=== PATIENT | male | born 1985 | race Caucasian/White ===

== ENCOUNTER 2017-06-02 16:28 | Observation (INO) ==
[2017-06-02] MEDS ORDERED: 0.9 % Sodium Chloride 1,000 ML IVC ONE (17:26)
[2017-06-02] MEDS ORDERED: Ondansetron 4 MG/2 ML VIAL IVP ONE ×2 (17:26→19:48)
[2017-06-02] MEDS ORDERED: Ketorolac 15 MG/ML VIAL IVP ONE (17:26)
[2017-06-02] MEDS ORDERED: *HR* HYDROmorphone (PF) 1 MG/ML SYRINGE IVP ONE (17:26)
[2017-06-02 17:51] LABS: Basophils % 0.1 %; Eosinophils # 0.1 K/mcL (0.0-0.6); Eosinophils % 0.3 %; Hematocrit 47.1 % (37.5-50.1); Hemoglobin 15.9 g/dL (12.9-16.9); Immature Granulocytes % 0.5 % (0-4); Lymphocytes # 0.7 K/mcL (0.6-4.6); Lymphocytes % 4.6 %; Mean Corpuscular HGB Conc 33.8 g/dL (31.6-35.5); Mean Corpuscular Hemoglobin 28.9 pg (28.0-33.3); Mean Corpuscular Volume 85.6 fL (83.0-100.0); Mean Platelet Volume 10.2 fL (9.4-12.4); Monocytes # 0.8 K/mcL (0.0-1.3); Monocytes % 5.5 %; Platelet Count 287 K/mcL (140-400); Red Cell Distribution Width 12.9 % (11.5-14.5)
[2017-06-02 17:57] LABS: BUN/Creatinine Ratio 11 (6-26); Blood Urea Nitrogen 15 mg/dL (6-20); Calcium 10.1 mg/dL (8.6-10.3); Carbon Dioxide 25 mEq/L (23-29); Chloride 105 mEq/L (98-107); Glucose 155 mg/dL (70-105); Osmolality,Calculated 294 (280-300); Potassium 3.9 mEq/L (3.5-5.1); Sodium 140 mEq/L (136-145); eGFR For African Americans > 60 (> 60); eGFR For Non-African Americans 58 (> 60)
--- NOTE | 2017-06-02 18:03 | Emergency Department Note ---
Disposition Clinical Impression: Elevated serum creatinine, Obstructed, uropathy Urolithiasis Qualifiers: Urinary calculus location: other lower urinary tract location Qualified Code(s) : N21.8 - Other lower urinary tract calculus Disposition: Admitted As Inpatient Condition: Fair Referrals: Bharathi Feliciano MD [Primary Care Provider] - Forms: ED Satisfaction Letter, Work/School Release Abdominal Pain HPI - General Chief Complaint: ED Abdominal Pain Stated Complaint: "kidney stones" Time Seen by Provider: 06/02/17 17:25 Source: patient Mode of arrival: ambulatory Limitations: no limitations Nursing Notes Reviewed: Yes Vital Signs Reviewed: Yes - History of Present Illness HPI Narrative: 31-year-old male with history of recurrent kidney stones presents for evaluation of worsening pain. Patient was diagnosed with a kidney stone approximately a week ago. Patient states that he was seeing nephrology to help with his recurrent kidney stones and had an outpatient ultrasound of the kidneys performed earlier today. Patient notes he drank an excessive amount of water and since then has noted progression of pain to the left lower quadrant. Patient also notes decreased urination. Patient denies any fevers does note some nausea but no symptoms of emesis. Patient denies any change in his bowels. Patient states that he has had recurrent kidney stones all of which required intervention by urology. Pain Scale: 8 - Related Data Home Medications Medication Instructions Recorded Confirmed hydroCHLOROthiazide 25 mg PO DAILY 03/17/16 06/02/17 [Hydrochlorothiazide] Potassium Citrate [Urocit-K] 10 meq PO BID 06/02/17 06/02/17 Previous Rx's Medication Instructions Recorded Tamsulosin [Flomax] 0.4 mg PO DAILY #5 cap.er.24h 05/25/17 Allergies Allergy/AdvReac Type Severity Reaction Status Date / Time levofloxacin [From Levaquin] Allergy Hives Verified 06/02/17 16:40 All systems ED: reviewed and negative except as stated. Constitutional: Reports: as per HPI. Denies: fever Eyes: Reports: as per HPI ENT ED: Reports: as per HPI Cardiovascular: Reports: as per HPI. Denies: chest pain Respiratory: Reports: as per HPI. Denies: cough, dyspnea Gastrointestinal: Reports: as per HPI, abdominal pain, nausea. Denies: vomiting Genitourinary: Reports: as per HPI Musculoskeletal: Reports: as per HPI Integumentary: Reports: as per HPI Neurological: Reports: as per HPI Psychiatric: Reports: as per HPI Endocrine: Reports: as per HPI Hematological/Lymphatic: Reports: as per HPI Allergic/Immunologic: Reports: as per HPI Abdominal Pain PMH - Past Medical History Medical history: Reports: hypertension, kidney stones Male Surgical History: Reports: other Psychiatric history: Reports: anxiety, depression - Social History Smoking status: Never smoker Alcohol use: Reports: none Drug use: Reports: none Physical Exam - General Limitations: no limitations General appearance: alert, in no apparent distress, other (Appears uncomfortable ) - Head Head exam: atraumatic, normocephalic, normal inspection - Eye Eye exam: Present: normal appearance, PERRL, EOMI. Absent: scleral icterus - ENT ENT exam: normal exam, normal oropharynx, mucous membranes moist - Neck Neck exam: Present: normal inspection, trachea midline - Chest Chest inspection: Present: normal inspection, symmetric chest wall rise - Respiratory Respiratory exam: Present: normal lung sounds bilaterally. Absent: respiratory distress - Cardiovascular Cardiovascular exam: Present: regular rate, normal rhythm - Abdominal Exam Abdominal exam: Present: soft, tenderness (left Lower abdomen). Absent: Non- Tender - Extremities Exam Extremities exam: Present: normal inspection. Absent: pedal edema - Back Exam Back exam: Present: normal inspection, CVA tenderness (L). Absent: CVA tenderness (R) - Neurological Exam Neurological exam: Present: alert, oriented X3, CN II-XII intact - Skin Skin exam: Present: warm, dry, intact, normal color Course Course Narrative: Patient seen and examined. Patient appears uncomfortable. States that he has not been taking any pain medication at home. - Reevaluation(s) Reevaluation #1: Patient seen and examined. Patient states relief of pain with pain medication. Awaiting urinalysis. Time: 18:51 Vital Signs Temperature 97.4 F L 06/02/17 16:37 Pulse Rate 81 06/02/17 16:37 Respiratory Rate 20 06/02/17 16:37 Blood Pressure 130/90 06/02/17 16:37 O2 Sat by Pulse Oximetry 98 06/02/17 16:37 Temperature 97.4 F L 06/02/17 16:37 Pulse Rate 81 06/02/17 16:37 Respiratory Rate 20 06/02/17 16:37 Blood Pressure 130/90 06/02/17 16:37 O2 Sat by Pulse Oximetry 98 06/02/17 16:37 Oxygen Delivery Oxygen Delivery Room Air Abdominal Pain - MDM Narrative Medical decision making narrative: 31-year-old male percents for evaluation of left flank pain left lower quadrant pain. Does have a history of renal stones. Patient had an ultrasound of the kidneys and bladder performed earlier today. Concerns for obstructing uropathy. Patient had basic lab work including chemistries. Patient will be signed out by oncoming provider pending urinalysis. Patient will need to be evaluated by urology. - Lab Data Lab results reviewed: Yes I reviewed the patient's lab results. Result diagrams: 06/02/17 17:37 06/02/17 17:37 Lab Results 06/02/17 06/02/17 06/02/17 Range/Units 17:37 17:37 18:34 WBC 14.7 H (4.3-11.1) K/mcL RBC 5.50 (4.19-5.50) M/mcL Hgb 15.9 (12.9-16.9) g/dL Hct 47.1 (37.5-50.1) % MCV 85.6 (83.0-100.0) fL MCH 28.9 (28.0-33.3) pg MCHC 33.8 (31.6-35.5) g/dL RDW 12.9 (11.5-14.5) % Plt Count 287 (140-400) K/mcL MPV 10.2 (9.4-12.4) fL Immature Gran % 0.5 (0-4) % Seg Neutrophils % 89.0 % Lymphocytes % 4.6 % Monocytes % 5.5 % Eosinophils % 0.3 % Basophils % 0.1 % Neutrophils # 13.0 H (1.6-8.9) K/mcL Lymphocytes # 0.7 (0.6-4.6) K/mcL Monocytes # 0.8 (0.0-1.3) K/mcL Eosinophils # 0.1 (0.0-0.6) K/mcL Basophils # 0.0 (0.0-0.2) K/mcL Sodium 140 (136-145) mEq/L Potassium 3.9 (3.5-5.1) mEq/L Chloride 105 (98-107) mEq/L Carbon Dioxide 25 (23-29) mEq/L BUN 15 (6-20) mg/dL Creatinine 1.40 H (0.70-1.30) mg/dL Est GFR ( Amer) > 60 (> 60) Est GFR (Non-Af Amer) 58 L (> 60) BUN/Creatinine Ratio 11 (6-26) Glucose 155 H (70-105) mg/dL Calculated Osmolality 294 (280-300) Calcium 10.1 (8.6-10.3) mg/dL Urine Color Yellow (Yellow) Urine Clarity Clear (Clear) Urine pH 6.0 (5.0-8.0) pH Units Ur Specific [place] 1.022 (1.010-1.025) Urine Protein Negative (Neg-Trace) mg/dL Urine Glucose (UA) Normal (Normal) mg/dL Urine Ketones Negative (Negative) mg/dL Urine Blood Large H (Negative) Urine Nitrite Negative (Negative) Urine Bilirubin Negative (Negative) Urine Urobilinogen Normal (Normal) mg/dL Ur Leukocyte Esterase Negative (Negative) Urine Microscopic RBC 3-5 H (0-3) per hpf Urine Microscopic WBC 0-3 (0-3) per hpf Ur Squamous Epith Cells None Seen (None-Few) per lpf Urine Bacteria None Seen (None-Few) per hpf Hyaline Casts None Seen (None-Few) per lpf - Radiology Data Radiology results reviewed: Yes I reviewed the patient's radiology results. Retroperitoneal ultrasound IMPRESSION: Bilateral nephrolithiasis. While the location of the renal calculi visualized on this study are not favored to be obstructive. There is mild left renal hydronephrosis and trace right renal pelviectasis. While nonspecific, no left ureteral jet is appreciated in the bladder. This is suggestive of persistent left ureteral obstructive uropathy and questionable right renal obstructive uropathy. Please note the ureters and ureteral calculi are poorly evaluated by sonography. Jesus - Jesus Situation: Demographics Background: Presenting Complaint Assessment: Vital Signs, Course and respsone to treatment, Patient/Family Expectation Recommendation: Barrier(s) to disposition, Recommendation based on pending studies, treatments, or consults Jesus Report Given to: Dr. Easton Lee Repor Time: 18:52 Attestation Statement - Attestation Attestation: I examined this patient and my medical decision-making was reviewed with the Resident Physician. I agree with the documented findings, disposition and treatment plan as described except to the extent set forth below. Patient to ED with left flank pain. Patient was seen a week ago and diagnosed with a kidney stone. He followed up with nephrology who ordered an ultrasound because he was having pain. He had no ureteral jet. On examination his left CVA tenderness present comfortable. Plan. Patient is not tolerating pain on home dose of Percocet. Still has obstruction. He has had procedures with urology in the past. Paging Dr. Brewer.
[2017-06-02 18:50] LABS: Bilirubin,Urine Negative (Negative); Blood,Urine Large (Negative); Clarity,Urine Clear (Clear); Color,Urine Yellow (Yellow); Glucose,Urine (UA) Normal (Normal); Ketones,Urine Negative (Negative); Leukocyte Esterase,Urine Negative (Negative); Nitrite,Urine Negative (Negative); Protein,Urine Negative (Neg-Trace); Specific Gravity,Urine 1.022 (1.010-1.025); Urobilinogen,Urine Normal (Normal)
[2017-06-02 18:53] LABS: Bacteria,Urine None Seen per hpf (None-Few); Hyaline Casts,Urine None Seen per lpf (None-Few); Squamous Epithelial Cell,Urine None Seen per lpf (None-Few); WBC,Urine 0-3 per hpf (0-3)
--- NOTE | 2017-06-02 19:16 | Emergency Department Note ---
Disposition Clinical Impression: Elevated serum creatinine, Obstructed, uropathy Urolithiasis Qualifiers: Urinary calculus location: other lower urinary tract location Qualified Code(s) : N21.8 - Other lower urinary tract calculus Disposition: Admitted As Inpatient Condition: Fair Referrals: Bharathi Feliciano MD [Primary Care Provider] - Forms: ED Satisfaction Letter, Work/School Release Time of Disposition: 19:14 General Adult HPI - General Chief complaint: ED Abdominal Pain Stated complaint: "kidney stones" Time Seen by Provider: 06/02/17 17:25 Source: patient Mode of arrival: ambulatory Limitations: no limitations - History of Present Illness HPI Narrative: Is a continuation of prior documentation. Pain Scale: 8 - Related Data Home Medications Medication Instructions Recorded Confirmed hydroCHLOROthiazide 25 mg PO DAILY 03/17/16 06/02/17 [Hydrochlorothiazide] Potassium Citrate [Urocit-K] 10 meq PO BID 06/02/17 06/02/17 Previous Rx's Medication Instructions Recorded Tamsulosin [Flomax] 0.4 mg PO DAILY #5 cap.er.24h 05/25/17 Allergies Allergy/AdvReac Type Severity Reaction Status Date / Time levofloxacin [From Levaquin] Allergy Hives Verified 06/02/17 16:40 Constitutional: Reports: as per HPI. Denies: fever Eyes: Reports: as per HPI ENT ED: Reports: as per HPI Cardiovascular: Reports: as per HPI. Denies: chest pain Respiratory: Reports: as per HPI. Denies: cough, dyspnea Gastrointestinal: Reports: as per HPI, abdominal pain, nausea. Denies: vomiting Genitourinary: Reports: as per HPI Musculoskeletal: Reports: as per HPI Integumentary: Reports: as per HPI Neurological: Reports: as per HPI Psychiatric: Reports: as per HPI Endocrine: Reports: as per HPI Hematological/Lymphatic: Reports: as per HPI Allergic/Immunologic: Reports: as per HPI Past Medical History - Past Medical History Medical history: Reports: hypertension, kidney stones Surgical history: Reports: ureteral stent Psychiatric history: Reports: anxiety, depression - Social History Smoking Status: Never smoker Smokeless Tobacco Status: No Alcohol use: Reports: none Drug use: Reports: none Physical Exam - General Limitations: no limitations General appearance: alert, in no apparent distress, other (Appears uncomfortable ) Course - Reevaluation(s) Reevaluation #1: Patient seen and examined. Patient confirms that he has had more than 10 stones all of which have required surgical intervention and/or lithotripsy. Patient is aware that he is going to have surgery tomorrow afternoon or evening. Patient states that he just would like this stone taken care of. Patient is agreeable to inpatient admission and treatment. Time: 19:13 Vital Signs Temperature 97.4 F L 06/02/17 16:37 Pulse Rate 81 06/02/17 16:37 Respiratory Rate 20 06/02/17 16:37 Blood Pressure 130/90 06/02/17 16:37 O2 Sat by Pulse Oximetry 98 06/02/17 16:37 Temperature 97.4 F L 06/02/17 16:37 Pulse Rate 81 06/02/17 16:37 Respiratory Rate 20 06/02/17 16:37 Blood Pressure 130/90 06/02/17 16:37 O2 Sat by Pulse Oximetry 98 06/02/17 16:37 Oxygen Delivery Oxygen Delivery Room Air Medical Decision Making - MDM Narrative Medical decision making narrative: Patient presents with recurrent kidney stones. Patients had have multiple procedures in the past including surgery and lithotripsy. Patient notes worsening pain. Patient had a renal ultrasound which did not visualize any ureteral jet. Patient had hydronephrosis and has slightly elevated creatinine. I spoke with the patient as well as urology who states that the patient may be admitted to their service. Patient requested admission. Patient's aware that he is going to have surgery tomorrow. Patient's pain was addressed in the emergency department. Review of the past records show the patient has seen multiple providers in the urologic clinic. Patient's urinalysis shows no signs of infection. - Lab Data Lab results reviewed: Yes I reviewed the patient's lab results. Result diagrams: 06/02/17 17:37 06/02/17 17:37 Lab Results 06/02/17 06/02/17 06/02/17 Range/Units 17:37 17:37 18:34 WBC 14.7 H (4.3-11.1) K/mcL RBC 5.50 (4.19-5.50) M/mcL Hgb 15.9 (12.9-16.9) g/dL Hct 47.1 (37.5-50.1) % MCV 85.6 (83.0-100.0) fL MCH 28.9 (28.0-33.3) pg MCHC 33.8 (31.6-35.5) g/dL RDW 12.9 (11.5-14.5) % Plt Count 287 (140-400) K/mcL MPV 10.2 (9.4-12.4) fL Immature Gran % 0.5 (0-4) % Seg Neutrophils % 89.0 % Lymphocytes % 4.6 % Monocytes % 5.5 % Eosinophils % 0.3 % Basophils % 0.1 % Neutrophils # 13.0 H (1.6-8.9) K/mcL Lymphocytes # 0.7 (0.6-4.6) K/mcL Monocytes # 0.8 (0.0-1.3) K/mcL Eosinophils # 0.1 (0.0-0.6) K/mcL Basophils # 0.0 (0.0-0.2) K/mcL Sodium 140 (136-145) mEq/L Potassium 3.9 (3.5-5.1) mEq/L Chloride 105 (98-107) mEq/L Carbon Dioxide 25 (23-29) mEq/L BUN 15 (6-20) mg/dL Creatinine 1.40 H (0.70-1.30) mg/dL Est GFR ( Amer) > 60 (> 60) Est GFR (Non-Af Amer) 58 L (> 60) BUN/Creatinine Ratio 11 (6-26) Glucose 155 H (70-105) mg/dL Calculated Osmolality 294 (280-300) Calcium 10.1 (8.6-10.3) mg/dL Urine Color Yellow (Yellow) Urine Clarity Clear (Clear) Urine pH 6.0 (5.0-8.0) pH Units Ur Specific [place] 1.022 (1.010-1.025) Urine Protein Negative (Neg-Trace) mg/dL Urine Glucose (UA) Normal (Normal) mg/dL Urine Ketones Negative (Negative) mg/dL Urine Blood Large H (Negative) Urine Nitrite Negative (Negative) Urine Bilirubin Negative (Negative) Urine Urobilinogen Normal (Normal) mg/dL Ur Leukocyte Esterase Negative (Negative) Urine Microscopic RBC 3-5 H (0-3) per hpf Urine Microscopic WBC 0-3 (0-3) per hpf Ur Squamous Epith Cells None Seen (None-Few) per lpf Urine Bacteria None Seen (None-Few) per hpf Hyaline Casts None Seen (None-Few) per lpf - Radiology Data Radiology results reviewed: Yes I reviewed the patient's radiology results. Reviewed the patient's past CT of the abdomen and pelvis imaging as well as recent retroperitoneal ultrasound. Jesus - Jesus Situation: Demographics Background: Presenting Complaint Assessment: Vital Signs, Course and respsone to treatment Recommendation: Barrier(s) to disposition, Recommendation based on pending studies, treatments, or consults Jesus Report Given to: Dr. Osman Lee Repor Time: 19:13
[2017-06-02] MEDS ORDERED: *HR* HYDROcodone/Acet 5/325 mg TABLET PO PRN (20:12)
[2017-06-02] MEDS ORDERED: *HR* Promethazine 25 MG/ML VIAL IVP PRN (20:12)
[2017-06-02] MEDS ORDERED: Ondansetron 4 MG/2 ML VIAL IVP PRN (20:12)
[2017-06-02] MEDS ORDERED: *HR* HYDROmorphone (PF) 1 MG/ML SYRINGE IVP PRN (20:12)
[2017-06-02] MEDS ORDERED: *HR* Morphine 2 MG/ML SYRINGE IVP PRN (20:12)
[2017-06-02] MEDS ORDERED: Naloxone 0.4 MG/ML INJ IVP PRN (20:12)
--- NOTE | 2017-06-02 21:06 | Urology History & Physical ---
Date of Encounter: 06/02/17 Time of Encounter: 21:04 Assessment and Plan (1) Elevated serum creatinine Current Visit: Yes Status: Acute should resolve with hydration and treatment of the stone. (2) Left ureteral calculus Current Visit: No Status: Acute we discussed options including trial of passage, ESWL, stone extraction with stent placement. pt elects to pursue a ureteroscopic stone extraction with holmium laser. risks includig injury to urinary tract, stricture, inablity to retrieve stone, infection, stent complications, all discussed. he elects to proceed tomorrow if he does not pass the stone. History of Present Illness Chief complaint: flank pain HPI: Mr. Corona is a 31 year old male recent ER visit for a ureteral stone. now 2nd ER visit bc of pain. CT one week ago4 mm obstructing calculus within the left mid ureter resulting in moderate left-sided hydronephrosis. no fever. perceived decreased UO Past Med Surg Social Fam HX - Past Medical History Medical history: hypertension, kidney stones Psychiatric history: anxiety, depression - Past Surgical History Surgical History: ureteral stent - Social History Smoking Status: Never smoker Smokeless Tobacco Status: No Alcohol use: none Drug use: none - Family History Mother Living Status: Still Living Father Hx Family Cardiac Disorders: Yes ([place]) Paternal Grandfather Living Status: Still Living Hx Family Cardiac Disorders: Yes ([place]) Paternal Grandmother Living Status: Hx Family Respiratory Disorders: Yes (Asthma) Hx Family Cancer: Yes (Stomach tumor, colon) Hx Family HEENT Disorders: Yes (Glaucoma) Medications and Allergies hydroCHLOROthiazide [Hydrochlorothiazide] 25 mg PO DAILY 03/17/16 [History] Tamsulosin [Flomax] 0.4 mg PO DAILY #5 cap.er.24h 05/25/17 [Rx] Potassium Citrate [Urocit-K] 10 meq PO BID 06/02/17 [History] 3 Allergy/AdvReac Type Severity Reaction Status Date / Time levofloxacin [From Levaquin] Allergy Hives Verified 06/02/17 16:40 Review of Systems - Constitutional no fever(s), no weakness - EENT Nose, mouth and throat: no dizziness - Cardiovascular no chest pain - Respiratory no cough - Gastrointestinal abdominal pain, nausea - Genitourinary flank pain, hematuria - Musculoskeletal back pain - Integumentary no erythema - Neurological no confusion - Psychiatric no anxiety - Hematologic/Lymphatic no easy bleeding - Allergic/Immunologic no throat swelling Exam Initial Vital Signs Temp Pulse Resp BP Pulse Ox 97.4 F L 81 20 130/90 98 06/02/17 16:37 06/02/17 16:37 06/02/17 16:37 06/02/17 16:37 06/02/17 16:37 - General physical appearance Present: no distress, moderate pain - Eyes Present: conjunctiva is clear - ENT Present: normal nares - Neck Present: no masses, trachea midline - Respiratory Present: normal respiratory effort - Cardiovascular Cardiovascular exam IM: RRR - Abdomen Abdomen: Present: soft, non tender, suprapubic tenderness - Integumentary Present: no rash, no growths, no abnormal pigmentation - Neurologic Present: normal coordination. Absent: disoriented - Additional Findings +CVA tender Urology Results - Labs 06/02/17 17:37 06/02/17 17:37 Abnormal lab results WBC 14.7 K/mcL (4.3-11.1) H 06/02/17 17:37 Neutrophils # 13.0 K/mcL (1.6-8.9) H 06/02/17 17:37 Creatinine 1.40 mg/dL (0.70-1.30) H 06/02/17 17:37 Est GFR (Non-Af Amer) 58 (> 60) L 06/02/17 17:37 Glucose 155 mg/dL (70-105) H 06/02/17 17:37 Urine Blood Large (Negative) H 06/02/17 18:34 Urine Microscopic RBC 3-5 per hpf (0-3) H 06/02/17 18:34 All other labs normal.
[2017-06-02] MEDS: 0.9 % Sodium Chloride 1,000 ML IVC SCH (21:07)
[2017-06-03] MEDS: 0.9 % Sodium Chloride 1,000 ML IVC SCH (05:10)
[2017-06-03] MEDS ORDERED: cefTRIAXone 1,000 MG in Water for inj. (sterile) 20 ML 10 ML IVP SCH (09:00)
--- NOTE | 2017-06-03 11:22 | Anesthesia Evaluation PreOp ---
Date of Encounter: 06/03/17 Time of Encounter: 12:07 - Past History Planned Operation: Left USE with laser lithotripsy Cardiac History: HTN, Hyperlipidemia Pulmonary History: KIRAN Dx (does not usually wear CPAP machine) [employer] History: Denies Any Significant HX Other Medical History: Renal (stones) Anesthesia History: No Prior Anesthetic Complications Alcohol Use: none Drug use: none Medications and Allergies hydroCHLOROthiazide [Hydrochlorothiazide] 25 mg PO DAILY 03/17/16 [History] Tamsulosin [Flomax] 0.4 mg PO DAILY #5 cap.er.24h 05/25/17 [Rx] Potassium Citrate [Urocit-K] 10 meq PO BID 06/02/17 [History] 3 Allergy/AdvReac Type Severity Reaction Status Date / Time levofloxacin [From Levaquin] Allergy Hives Verified 06/02/17 16:40 - Meds/Allergy Pre-op Review Medications Reviewed: Yes Allergies Reviewed: Yes Beta Blockers on Current Med List: No Anesthesia Results - Labs 06/02/17 17:37 06/02/17 17:37 Anesthesia Exam Last Vital Signs Temp 97.9 F 06/03/17 10:48 Pulse 77 06/03/17 10:48 Resp 16 06/03/17 10:48 BP 151/77 06/03/17 10:48 Pulse Ox 96 06/03/17 10:48 Weight: 102 kg - HEENT Pupil (Motor): Pupils equal, EOMI Mallampati: III Teeth: Normal Oral Opening: Greater than 3 - [employer] LOC: Oriented [employer] Motor: Normal RUE, Normal LUE, Normal RLE, Normal LLE, Normal Face - Cardiac Rhythm: Regular Murmur: None - Pulmonary Breath Sounds: bilateral Clear Respiratory Effort: Symmetrical Anesthesia Assess/Plan ASA Score: 2 Modified Ron Scale for Level of Consciousness: Cooperative, oriented, and tranquil Anesthetic Plan: General Monitoring Plan: Standard Monitors Recovery Plan: PACU
[2017-06-03] MEDS ORDERED: Dexamethasone 4 MG/ML VIAL ONE (11:27)
[2017-06-03] MEDS ORDERED: *HR* FentaNYL (PF) 100 MCG/2 ML VIAL ONE ×2 (11:27→12:33)
[2017-06-03] MEDS ORDERED: *HR* Propofol 200 MG/20 ML VIAL IVP ONE ×2 (11:27→12:32)
[2017-06-03] MEDS ORDERED: *HR* Midazolam HCl 2 MG/2 ML VIAL ONE (11:27)
[2017-06-03] MEDS ORDERED: Lidocaine -MPF 2% 2 ML VIAL ONE (11:27)
[2017-06-03] MEDS ORDERED: Ondansetron 4 MG/2 ML VIAL ONE (11:27)
[2017-06-03] MEDS ORDERED: *HR* HYDROmorphone (PF) 1 MG/ML SYRINGE IVP PRN ×2 (12:38→13:38)
[2017-06-03] MEDS ORDERED: Ondansetron 4 MG/2 ML VIAL IVP ONE ×2 (12:38→13:38)
[2017-06-03] MEDS ORDERED: Albuterol 2.5 MG/3 ML NEBULIZER IH ONE (12:38)
[2017-06-03] MEDS ORDERED: Ringers Solution, Lactated 1,000 ML IVC SCH ×2 (12:45→13:38)
--- NOTE | 2017-06-03 12:55 | Operative Note ---
Date of procedure: 06/03/17 Pre-op diagnosis: left ureteral stone Post-op diagnosis: same Procedure: Left ureteroscopic stone extraction with holmium laser Left retrograde pyelogram Left ureteral stent placement Anesthesia: GETA Surgeon: Vineet Brewer Was there an fire control assistant present: No Estimated blood loss (cc): 0 Specimen: Stone fragments retrieved but not sent for stone analysis per M.D. decision Condition: stable Disposition: PACU Procedure in Detail: PROCEDURE IN DETAIL: Patient was taken back to the operating room, positioned supine on the operating table. Anesthesia was applied without complication. They were moved into dorsal lithotomy. Careful attention was maintained to cushion all pressure points for patient's safety. They were prepped and draped in sterile fashion. Time-out was performed with the proper patient and procedure. A 21-[place] rigid cystoscope was inserted into the bladder without difficulty. Systematic examination of bladder revealed no abnormalities. The ureteral orifice was cannulated using a 5-Icelandic ureteral Catheter and a retrograde pyelogram was performed using Isovue. A filling defect was identified which corresponded to the stone now at the distal ureter. At that point, a zip wire was placed through the 5-Icelandic and confirmed in the renal pelvis with fluoroscopy. A semi-rigid ureteroscope was carefully inserted into the bladder and guided into the ureteral oriface. At that point, the stone was encountered and I felt that it required fragmentation for safe extraction. A 200 micron holmium laser fiber on a setting of 8 and 800 was used to fragment the stone into multiple pieces. The fragments were individually basketed out of the ureter with a 1.9 tipless basket. All stone in the ureter was removed. A 4.8 x 26 ureteral stent was placed over the zip wire under fluoroscopy without complication. The bladder was drained along with the stone fragments. The string was left attached to the stent and secured to the patient for easy removal in approximately 72 hours
--- NOTE | 2017-06-03 13:30 | Anesthesia Evaluation Post Op ---
Date of Encounter: 06/03/17 Time of Encounter: 13:30 - Vital Signs Vital Signs: Last Vital Signs Temp 97.1 F L 06/03/17 13:02 Pulse 80 06/03/17 13:22 Resp 16 06/03/17 13:22 BP 139/89 06/03/17 13:22 Pulse Ox 96 06/03/17 13:22 - Lungs Lungs: Clear Ascult./Percussion - Airway Airway: Non-obstructed - Cardiovascular Regular Rate - Mental Status Mental Status: Alert & Oriented, Answers Appropriately - Pain Pain Scale: 3 - Nausea Vomiting Nausea Vomiting: Not Present - Hydration Hydration: Ice chips - Discharge PostOp Status: Transfer Patient to floor
[2017-06-03] MEDS ORDERED: *HR* HYDROcodone/Acet 5/325 mg TABLET PO PRN (13:38)
[2017-06-03] MEDS ORDERED: Ondansetron 4 MG/2 ML VIAL IVP PRN (13:38)
[2017-06-03] MEDS ORDERED: *HR* Morphine 2 MG/ML SYRINGE IVP PRN (13:38)
[2017-06-03] MEDS ORDERED: 0.9 % Sodium Chloride 1,000 ML IVC SCH (13:38)
[2017-06-03] MEDS ORDERED: Naloxone 0.4 MG/ML INJ IVP PRN (13:38)
[2017-06-03] MEDS ORDERED: *HR* Promethazine 25 MG/ML VIAL IVP PRN (13:38)
--- NOTE | 2017-06-03 16:43 | Discharge Summary ---
Date of Encounter: 06/03/17 Time of Encounter: 16:40 - Discharge Diagnosis (1) Elevated serum creatinine Priority: Secondary Status: Resolved (2) Left ureteral calculus Priority: Primary Status: Resolved - Discharge Medications Prescriptions: HYDROcodone/Acet 5/325 mg [[place] 5-325 mg] 1 tab PO Q4HR PRN #15 tablet PRN Reason: Moderate Pain Phenazopyridine HCl [Pyridium] 200 mg PO TIDAC PRN #10 tab PRN Reason: burning with urination Home Medications: hydroCHLOROthiazide [Hydrochlorothiazide] 25 mg PO DAILY 03/17/16 [History] Potassium Citrate [Urocit-K] 10 meq PO BID 06/02/17 [History] HYDROcodone/Acet 5/325 mg [[place] 5-325 mg] 1 tab PO Q4HR PRN #15 tablet [Rx] Phenazopyridine HCl [Pyridium] 200 mg PO TIDAC PRN #10 tab 06/03/17 [Rx] Allergies/Adverse Reactions: 3 Allergy/AdvReac Type Severity Reaction Status Date / Time levofloxacin [From Levaquin] Allergy Hives Verified 06/02/17 16:40 Labs on day of discharge: Labs from last 24 hours 06/03/17 05:38 POC Glucose 92 H - Impressions ITS Impressions Retrograde Pyelogram 06/03/17 12:26 IMPRESSION: Intraprocedural fluoroscopic spot images as above. See separate procedure report for more information. D/ / 06/03/2017 13:44:12 Gualberto Cox MD / marisol Interpreting Provider: Gualberto Cox MD Date of admission: 06/02/17 19:45 Primary care physician: Bharathi Feliciano MD Discharging clinician: Vineet Brewer Anticipated date of discharge: 06/03/17 - Patient Status Disposition: Home, Self-Care Condition: Good Functional capacity at discharge: independent ambulation Overall status at discharge: patient is progressing back to baseline - Discharge Instructions Follow Up With: Vineet Brewer MD [Partnered Physician] - (Okay to follow as needed) Additional Instructions: Expect stent discomfort including urgency, frequency, burning on urination, blood in the urine Okay to remove stent at home in 72 hours by pulling on the string. If unable to remove the stent at home please follow with the urology office on tuesday Ok to follow on an as-needed basis with [facility] Call for any questions, concerns, severe symptoms, fever over 101 - Diet and Activity Activity: increase activity as tolerated Diet: advance to your usual diet - Hospital Course Hospital course: Mr. Corona is a 31 year old male admitted with a left obstructing ureteral calculi. Status post successful stone extraction today. Feeling good postoperatively. Vital signs on concerning. Ready for discharge - Time Spent with Patient Total time spent providing and/or coordinating discharge services: Less than 30 minutes Exam Initial Vital Signs Temp Pulse Resp BP Pulse Ox 97.4 F L 81 20 130/90 98 06/02/17 16:37 06/02/17 16:37 06/02/17 16:37 06/02/17 16:37 06/02/17 16:37 - General physical appearance Present: well developed, no distress
[2017-06-03 17:57] VITALS: BP 150/100
[2017-06-03] MEDS ORDERED: FLUARIX QUAD 2017-18 36MOS UP/PF 0.5 ML SYRINGE IM ONE (18:05)
[2017-06-03] MEDS ORDERED: Potassium Citrate 10 MEQ TABLET.ER PO SCH (21:00)
[2017-06-04] MEDS ORDERED: hydroCHLOROthiazide 25 MG TABLET PO SCH (09:00)
[2017-06-04] MEDS ORDERED: cefTRIAXone 1,000 MG in Water for inj. (sterile) 20 ML 10 ML IVP SCH (09:00)
== END 2017-06-03 18:23 | disposition home or self-care (01) ==
LOC: 3ANU 16:28 → EMEROO 16:28 → 3ANU 20:25
PROVIDERS: ADMIT Urology; ATTEND Urology